=== PATIENT | female | born 1950 | race Two or more races ===

== ENCOUNTER 2020-03-16 06:00 | Day surgery (SDC) | payer OTHER | END 2020-03-16 10:50 | disposition home or self-care (01) | LOC: AMB-ENDOS 06:00 → CIR.AMB 10:00 → AMB-ENDOS 10:50 | PROVIDERS: ATTEND Surgery | DX: K62.89 Other specified diseases of anus and rectum (principal); Z20.828 Contact with and (suspected) exposure to other viral communicable diseases ==

== ENCOUNTER 2020-06-07 09:00 | Inpatient (IN) | payer OTHER ==
[~2020-06-07] VITALS: Ht 152.4 cm; Wt 62.1 kg
[2020-06-11] MEDS ORDERED: CIPROFLOXACIN500 MG (09:55)
[2020-06-14] MEDS ORDERED: HYOSCYAMINE0.125 M1 SL (14:46)
[2020-06-14] MEDS ORDERED: OXYC1TAB9 PO (14:46)
== END 2020-06-14 15:30 | disposition home or self-care (01) | DRG 330 ==
LOC: SURH 06-10 08:15 → O/R 06-10 08:55 → SURH 06-10 09:00
PROVIDERS: ADMIT Surgery; ATTEND Surgery
PROC: 0DTQ4ZZ Resection of Anus, Percutaneous Endoscopic Approach (ICD-10-PCS; 2020-06-10)
PROC: 07BC4ZX Excision of Pelvis Lymphatic, Percutaneous Endoscopic Approach, Diagnostic (ICD-10-PCS; 2020-06-10)
PROC: 0DBN4ZZ Excision of Sigmoid Colon, Percutaneous Endoscopic Approach (ICD-10-PCS; principal; 2020-06-10 08:15)
DX: C21.1 Malignant neoplasm of anal canal (principal); N82.3 Fistula of vagina to large intestine; R59.0 Localized enlarged lymph nodes; F43.20 Adjustment disorder, unspecified; K63.5 Polyp of colon

== ENCOUNTER 2020-08-30 10:13 | Inpatient (IN) | payer OTHER ==
[~2020-08-30] VITALS: Ht 152.4 cm; Wt 61.7 kg
[~2020-08-30 10:13] MED LIST: CIPROFLOXACIN500 MG; HYOSCYAMINE0.125 M1 SL; OXYC1TAB9 PO
--- NOTE | 2020-08-30 10:27 | NUR ---
PTE REFIERE QUE EL ENERO FUE OPERADA POR EL DR SAUCEDO DEL ANO EL CUAL REFIERE PORBLEMA AL CICATRIZAR. PTE PRESETAN REFERIDO MEDICO Y SE PRESENTRA AL DR FRENCH.
--- NOTE | 2020-08-30 10:57 | NUR ---
PACIENTE FEMINA ALERTA ORIENTADA EN COMPANIA DE FAMILIAR. SE RE ORIENTA SOBRE EL TRATAMIENTO RODEANDO POR EL MEDICO LA MISMA REFIERE ENTENDER. BAJO MEDIDAS ASEPTICAS SE CANALIZA SE ÁLVARO MUESTRAS DE LABORATORIO Y SE ADMINISTRAN MEDICAMENTOS. ORDENES TOMADAS POR RN: SONALI Y EJECUTADAS POR RN: Anuradha LUJAN. SE JEFF PRIVACIDAD SEGURIDAD Y SE ASISTE A OLIVER NECESIDADES EN TODO MOMENTO. PACIENTE ESTABLE.
[2020-08-30] MEDS ORDERED: FAMOTIDINE20 MG (16:07)
[2020-09-06] MEDS ORDERED: ULTRAM50 MG PO (12:32)
== END 2020-09-06 17:32 | disposition home or self-care (01) | DRG 920 ==
LOC: ER 10:13 → SEC-K 15:20 → SURH 15:20
PROVIDERS: ADMIT Surgery; ATTEND Surgery
PROC: BW2110Z Computerized Tomography (CT Scan) of Abdomen and Pelvis using Low Osmolar Contrast, Unenhanced and Enhanced (ICD-10-PCS; principal; 2020-08-30)
DX: T81.31XA Disruption of external operation (surgical) wound, not elsewhere classified, initial encounter (principal); N82.3 Fistula of vagina to large intestine; C21.1 Malignant neoplasm of anal canal; Z98.890 Other specified postprocedural states; Z20.822 Contact with and (suspected) exposure to COVID-19